=== PATIENT | male | born 1965 | race Two or more races ===

== ENCOUNTER 2018-05-20 15:31 | Emergency (ER) | payer SELFPAY ==
[~2018-05-20] VITALS: Ht 172.7 cm; Wt 78.0 kg
[2018-05-20] MEDS ORDERED: IBUPROFEN 600MG TABLET PO ONE (17:15)
[2018-05-20 19:16] VITALS: BP 130/88
== END 2018-05-20 19:16 | disposition home or self-care (01) ==
LOC: ER 15:31
DX: S29.011A Strain of muscle and tendon of front wall of thorax, initial encounter (principal); X50.0XXA Overexertion from strenuous movement or load, initial encounter; Y93.89 Activity, other specified; Y92.89 Other specified places as the place of occurrence of the external cause; R03.0 Elevated blood-pressure reading, without diagnosis of hypertension; R05 Cough; F17.210 Nicotine dependence, cigarettes, uncomplicated
CPT/HCPCS: 71045; 99283